=== PATIENT | female | born 1945 | race Two or more races ===

== ENCOUNTER 2017-05-23 00:16 | Emergency (ER) | payer MEDICAID ==
[~2017-05-23] VITALS: Ht 157.5 cm; Wt 79.0 kg
[2017-05-23 00:20] VITALS: BP 140/55
== END 2017-05-23 00:45 | disposition left against medical advice (07) ==
LOC: ER 00:16 → EDBD 00:16 → ER 00:45
DX: Z53.21 Procedure and treatment not carried out due to patient leaving prior to being seen by health care provider (principal)